=== PATIENT | female | born 1995 | race Caucasian/White ===

== ENCOUNTER 2018-12-31 10:18 | Emergency (ER) | payer BC ==
[~2018-12-31] VITALS: Ht 149.9 cm; Wt 65.8 kg
[2018-12-31] MEDS ORDERED: CLINDAMYCIN PHOS 600 MG/ 4 ML VIAL IM ONE (10:45)
[2018-12-31] MEDS ORDERED: HYDROCODONE/APAP 5MG-325MG TAB PO ONE (10:45)
[2018-12-31] MEDS ORDERED: TYLENOL WITH C1 EACH PO (11:13)
[2018-12-31] MEDS ORDERED: CLINDAMYCIN HC300 MG PO (11:13)
[2018-12-31 11:53] VITALS: BP 134/85
== END 2018-12-31 11:55 | disposition home or self-care (01) ==
LOC: ER 10:18
DX: M79.661 Pain in right lower leg (principal); S80.11XA Contusion of right lower leg, initial encounter; W21.07XA Struck by softball, initial encounter; Y93.64 Activity, baseball; Y92.328 Other athletic field as the place of occurrence of the external cause
CPT/HCPCS: 99282